=== PATIENT | female | born 1960 | race Caucasian/White ===

== ENCOUNTER 2019-07-07 09:38 | Outpatient (CLI) | payer BC, SELFPAY ==
--- NOTE | ~2019-07-07 | US_ITS ---
EXAMINATION: US soft tissue LE RT DATE: 07/07/2019 10:14 INDICATION: Right medial lower leg mass. TECHNIQUE: Multiple grayscale and Doppler ultrasound images of the right lower leg were obtained. COMPARISON: None FINDINGS: In the medial distal right lower leg, there are multiple subcutaneous hypoechoic masses tahir suring up to 8 mm. IMPRESSION: 1. Multiple small subcutaneous hypoechoic masses in the medial distal right lower leg. These findings are nonspecific, but may be hematomas or inflammation. Reviewed, dictated and finalized at location A. IMPRESSION: 1. Multiple small subcutaneous hypoechoic masses in the medial distal right low er leg. These findings are nonspecific, but may be hematomas or inflammation.
== END 2019-07-07 09:39 | disposition home or self-care (01) ==
PROVIDERS: PCP Internal Medicine; Visit Provider Internal Medicine
DX: R22.40 Localized swelling, mass and lump, unspecified lower limb (principal)
CPT/HCPCS: 76882

== ENCOUNTER → 2019-11-22 11:25 | Outpatient (CLI) | payer BC, SELFPAY ==
--- NOTE | ~2019-11-22 | DEXA_ITS ---
Bone Density Report Name: Anna Brandt Age: 59 Sex: Female Ethnicity: White Date of : 1960 Indication: postmenopausal; screening for osteoporosis; history of glucocorticoids; asthma or emphysema; end stage renal disease; Referring Provider: DAVID, EMERSON Muro Study: Bone densitometry was performed. Exam Date: November 22, 2019 Accession number: [id number] Bone Density: Region BMD T-score Z-score Classification AP Spine (L1-L4) 0.949 -0.9 0.5 Normal Femoral Neck (Left) 0.750 -0.9 0.4 Normal Total Hip (Left) 0.857 -0.7 0.2 Normal Femoral Neck (Right) 0.765 -0.8 0.5 Normal Total Hip (Right) 0.822 -1.0 0.0 Normal Total Hip Mean 0.840 -0.9 0.1 Normal World Health Organization criteria for BMD impression classify patients as: Normal (T-score at or above -1.0), Osteopenia (T-score between -1.0 and -2.5), or Osteoporosis (T-score at or below -2.5). 10-year Fracture Risk: FRAX not reported because: All T-scores for Spine Total, Hip Total, Femoral Neck at or above -1.0 Clinical Information Provided by Patient: Has taken Glucocorticoids Has the following medical conditions: Asthma or Emphysema, End stage renal disease Patient maximum height was 61 Menopause Age: 47 No regular weight bearing exercise Does not regularly consume dairy products Drinks caffeinated beverages Onset of menses at age 10 Number of children 1 Impression: The patient has normal bone mass. The patient has risk factors, including: history of glucocorticoid therapy. Discussion: BONE DENSITY IS ABOVE THE MINIMUM DESIRABLE LEVEL AT ALL SKELETAL SITES TESTED. This patient?s bone mineral density is above the minimum desirable level (T-score -1.0 or better) at all sites measured. The patient should follow a healthful lifestyle (good nutrition with adequate calcium and vitamin D, and appropriate weight-bearing exercise). Follow-Up: Consider repeating this study in 5 years or sooner if there is some new clinical indication. Reported by: [facility] on 11/22/2019 12:11:00 PM. Reviewed, dictated and finalized at location AShayna CONTRERAS
--- NOTE | ~2019-11-22 | MM_ITS ---
EXAMINATION: MM screening ana BI w kamla HISTORY: Screening mammogram, family history of breast cancer in her mother. TECHNIQUE: Craniocaudal and mediolateral oblique 3-D tomosynthesis images were obtained and synthetic 2-D images were generated. CAD analysis was submitted and interpreted. COMPARISON: 03/07/2017 BREAST PARENCHYMAL COMPOSITION: There are scattered areas of fibroglandular density. FINDINGS: There is no evidence of suspicious mass, calcification, or architectural distortion to sugg est malignancy in either breast. There has been no suspicious interval change. IMPRESSION: 1. No mammographic evidence of malignancy. 2. Recommend routine screening mammography in one year. BI-RADS Category 1: Negative Reviewed, dictated and finalized at location A.
== END ==
PROVIDERS: PCP Internal Medicine; Visit Provider Internal Medicine
DX: Z12.31 Encounter for screening mammogram for malignant neoplasm of breast (principal); Z13.820 Encounter for screening for osteoporosis; Z78.0 Asymptomatic menopausal state
CPT/HCPCS: 77063; 77067; 77080

== ENCOUNTER 2020-03-28 10:26 | Outpatient (NON) | payer BC, SELFPAY ==
[2020-03-29 00:37] LABS: SARS-CoV-2 RNA PCR Negative
== END 2020-03-28 10:27 ==
LOC: ANHCOVIDDT 10:28
PROVIDERS: PCP Internal Medicine; Visit Provider Internal Medicine
DX: Z20.822 Contact with and (suspected) exposure to COVID-19 (principal)
CPT/HCPCS: C9803; U0003; U0005

== ENCOUNTER 2020-04-02 14:45 | Inpatient (IN) | payer BC, SELFPAY ==
--- NOTE | ~2020-04-02 | XR_ITS ---
EXAMINATION: XR chest 1V portable 04/02/2020 15:44 INDICATION: Weakness and shortness of breath PROCEDURE: AP portable chest COMPARISON: No prior studies for comparison. FINDINGS: The lungs are clear. The cardiomediastinal silhouette is within normal limits. There are no pleural effusions. There is no pneumothorax suspected. IMPRESSION: 1: NO ACUTE CARDIOPULMONARY DISEASE. Reviewed, dictated and finalized at location A. MAKER
[2020-04-02 14:54] VITALS: BP 111/62; PULSE 104; RESP 20; TEMP 36.9; O2SAT 97
[2020-04-02 15:02] LABS: Glucose Point of Care > 500 (65-105)
[2020-04-02 15:11] LABS: Basophils Percent Auto 0.1 % (0.2-1.2); Eosinophils Percent Auto 0.1 % (0-4.4); Hematocrit 31.8 % (37.0-47.0); Immature Granulocyte Absolute 0.03 K/mm3 (0.00-0.031); Immature Granulocyte Percent A 0.4 % (0-0.5); Lymphocytes Absolute Auto 0.53 K/mm3 (0.9-3.2); Lymphocytes Percent Auto 7.9 % (18.3-44.2); Mean Corpuscular HGB Conc 34.6 g/dl (32-36); Mean Corpuscular Hemoglobin 29.5 pg (26-34); Mean Corpuscular Volume 85.3 fl (80-100); Monocytes Absolute Auto 0.2 K/mm3 (0.1-0.6); Monocytes Percent Auto 3.6 % (2.6-8.5); Neutrophils Absolute Auto 5.9 K/mm3 (1.3-6.7); Neutrophils Percent Auto 87.9 % (45.5-73.1); Platelet Count Result 177 k/mm3 (150-375); Red Blood Count 3.73 M/mm3 (4.2-5.4); Red Cell Distribution Width 12.3 % (11.5-14.5); White Blood Count 6.7 K/mm3 (4.5-10.0)
[2020-04-02 15:18] LABS: Glucose Point of Care > 500 (65-105)
[2020-04-02 15:26] LABS: Add Urine Microscopic? YES; Appearance Urine Clear (Clear); Bacteria Urine Trace /hpf; Bilirubin Urine Negative (Negative); Blood Urine Negative (Negative); Color Urine Straw (Yellow); Glucose Urine UA 3+ mg/dL (Negative); Ketones Urine Trace mg/dL (Negative); Leukocyte Esterase Ur Negative LEU/UL (Negative); Mucus Urine Rare /lpf; Nitrate Urine Negative (Negative); Protein Urine Negative (Negative); RBC Urine 0-2 /hpf (0-2); Specific Grav Ur 1.028 (1.001-1.035); Squamous Epithelial Cell Urine Moderate /hpf (Few); Urobilinogen Urine Negative mg/dL (<2.0)
[2020-04-02 15:28] LABS: Alanine Aminotransferase 18 U/L (4-35); Albumin Level 4.2 g/dL (3.5-5.1); Alkaline Phosphatase 92 U/L (38-126); Anion Gap 13 mmol/L (8-16); Aspartate Amino Transferase 21 U/L (14-36); Beta-Hydroxybutyrate/Acetoacetate 3.05 mmol/L (0.02-0.27); Blood Urea Nitrogen 34 mg/dL (7-17); Calcium 10.2 mg/dL (8.4-10.2); Carbon Dioxide 21 mmol/L (22-30); Chloride 90 mmol/L (98-107); Estimated CRCL calculation 24 ml/min; Estimated Glomerular Filt Rate 27; Magnesium 1.7 mg/dL (1.6-2.3); Phosphorus 3.8 mg/dL (2.5-4.5); Potassium 5.6 mmol/L (3.4-5.0); Sodium 124 mmol/L (137-145)
--- NOTE | 2020-04-02 15:31 | ECG_ITS ---
Measurements Intervals [place] Rate: 87 P: 29 MO: 149 QRS: -17 QRSD: 91 T: 81 QT: 341 QTc: 410 Interpretive Statements SINUS RHYTHM ATRIAL PREMATURE COMPLEX BORDERLINE R WAVE PROGRESSION, ANTERIOR LEADS NONSPECIFIC ST & T-WAVE ABNORMALITY- HIGH LATERAL LEADS BASELINE ARTIFACT- I, II, AVR, AVL, AVF, V1, V6 BORDERLINE ECG Electronically Signed On 04-02-2020 19:21:18 [employer]AVA ANDROID DEVELOPER by Vic Rivera D.O.
[2020-04-02 15:34] LABS: Glucose 762 mg/dL (65-105)
--- NOTE | 2020-04-02 15:34 | ED.RECABL ---
HPI - Recheck/Abnormal Lab/Rx General Chief Complaint: Recheck/Abnormal Lab/Rx Stated Complaint: elevated blood sugar Time Seen by Provider: 04/02/20 15:13 Source: patient Mode of arrival: ambulatory Limitations: no limitations History of Present Illness HPI narrative: This patient is a 59 year old female with history of hypertension, hyper lipidemia, kidney transplant who presents to ER for evaluation of an elevated blood sugar. Patient states she had routine labs drawn yesterday. Today she received a phone call stating her blood sugar was elevated and she needed to go to ER. She report nausea, fatigue, increased thirst and urination for 4 weeks. She reports intermittent stinging pain in her right lower abdomen over her transplant kidney. She reports chronic low grade temperature. She denies cough and chest pain. She reports shortness of breath intermittent. Denies history of diabetes. She reports 20 pound weight loss. She denies any medication changes other than starting crestor. She reports she had a kidney transplant in 2009 at [place]. Related Data Home Medications Medication Instructions Recorded Confirmed albuterol sulfate 2 puff INHALATION QID PRN 04/02/20 04/02/20 duloxetine 60 mg PO DAILY 04/02/20 04/02/20 famotidine 20 mg PO BID 04/02/20 04/02/20 metoprolol tartrate 25 mg PO DAILY 04/02/20 04/02/20 mycophenolate sodium 360 mg PO BID 04/02/20 04/02/20 olmesartan 10 mg PO BID 04/02/20 04/02/20 prednisone 5 mg PO DAILY 04/02/20 04/02/20 rosuvastatin 10 mg PO DAILY 04/02/20 04/02/20 tacrolimus 2 mg PO BID 04/02/20 04/02/20 Allergies Allergy/AdvReac Type Severity Reaction Status Date / Time Sulfa (Sulfonamide Allergy Mild Hives Verified 04/02/20 20:24 Antibiotics) Cephalosporins Allergy Unknown Hives Verified 04/02/20 20:24 Review of Systems Review of Systems: All systems reviewed & are unremarkable except as noted in HPI and below Constitutional: Constitutional: Denies chills, Reports fatigue and Denies fever(s) Cardiovascular: Cardiovascular: Denies chest pain Respiratory: Respiratory: Denies cough and Reports dyspnea Gastrointestinal: Gastrointestinal: Reports abdominal pain, Denies diarrhea, Reports nausea and Denies vomiting Genitourinary: Genitourinary: Reports nocturia [facility] Past Medical History Medical History (Updated 04/02/20 @ 23:04 by Akiko Haji MD) Chronic anemia Chronic renal failure History of hemodialysis prior to renal transplant. Baseline creatinine is around 1.40. Congestive heart failure Gastroesophageal reflux disease Hyperlipidemia Hypertension Immunocompromised patient On immunosuppressive therapy status post renal transplant. Polycystic kidney disease Status post bilateral nephrectomy. Skin cancer History of both basal cell and squamous cell carcinoma. Type 2 diabetes mellitus (~04/02/20) Surgical History Surgical History (Updated 04/02/20 @ 23:04 by Akiko Haji MD) History of Achilles tendon repair History of section (~1981) History of endometrial ablation (~2008) Kidney transplant recipient (~04/2009) Status post creation of arteriovenous fistula Status post surgical removal of malignant neoplasm of skin Family History Family History (Updated 04/02/20 @ 22:48 by Camilla Valladares PA-C) Other Breast cancer Carcinoma of colon Diabetes mellitus Lung cancer Polycystic kidney disease Social History Social History (Updated 04/02/20 @ 22:48 by Camilla Valladares PA-C) Social History: Surrogate decision maker: Louis Alvarez, spouse. Code status: Full code. Smoking packs per day: 1 Smoking cigarettes per day: 20.0 Years smoked: 30 Smoking pack-years: 30.00 Smoking status: Former smoker Tobacco type: cigarettes Second hand tobacco smoke exposure: Yes Alcohol intake: current Drinks per week: 1 Substance use: never Additional living arrangements comments: Resides in [facility]
--- NOTE | 2020-04-02 15:45 | PC.NURSE ---
patient brought back to ED room H2 with c/o elevated sugar or abnormal labs. see initial notes. patient states she is not diabetic. has been told previously that her glucose was 140-160. notified today that her glucose on some recent labs was over 500. instructed to come to the ED for work up and possible admission. patient with hx of peritoneal dialysis, kidney transplant in 2009. has AV graft in left upper arm. assessments documented.
[2020-04-02] MEDS: INSULIN HUMAN REGULAR (*BKC) 100 UNITS/ML 6 UNITS IV PUSH (15:46)
[2020-04-02] MEDS: SODIUM CHLORIDE 0.9% IV 1,000 ML 999 ML IV CONT ×2 (15:59→16:21)
--- NOTE | 2020-04-02 16:44 | PC.NURSE ---
Tried sticking patient for a venous blood gas, and was unsuccessful.
[2020-04-02 17:03] LABS: Glucose Point of Care > 500 (65-105)
[2020-04-02 17:11] LABS: Device ROOM AIR; Fractional Inspired Oxygen 21 %; HCO3 VBG 21.1 mEq/l (24.0-30.0); PCO2 VBG 38.1 mmHg (42.0-48.0); PO2 VBG 16.8 mmHg (35.0-45.0); pH VBG 7.361 (7.300-7.400)
[2020-04-02] MEDS: SODIUM BICARBONATE 8.4% 50 MEQ/50 ML VIAL IV PUSH (17:52)
[2020-04-02] MEDS: INSULIN HUMAN REGULAR (*BKC) 100 UNITS in SODIUM CHLORIDE 0.9% IV 99 ML IV CONT (18:31)
[2020-04-02] MEDS: SODIUM CHLORIDE 0.9% IV 1,000 ML 150 ML IV CONT (18:34)
[2020-04-02 18:43] LABS: Anion Gap 9 mmol/L (8-16); Blood Urea Nitrogen 33 mg/dL (7-17); Carbon Dioxide 22 mmol/L (22-30); Chloride 99 mmol/L (98-107); Estimated CRCL calculation 29 ml/min; Estimated Glomerular Filt Rate 33; Glucose 502 mg/dL (65-105); Potassium 5.5 mmol/L (3.4-5.0); Sodium 130 mmol/L (137-145)
--- NOTE | 2020-04-02 19:00 | PM.IMHP ---
H&P: HPI History of Present Illness Date/Time: 04/02/20 19:00 Chief Complaint: Elevated blood sugar. Narrative: This is a pleasant 59-year-old female with hypertension and polycystic kidney disease status post bilateral nephrectomy and kidney transplant who presented to the emergency department earlier today from home at the direction of her transplant team for further evaluation of an elevated blood sugar level found on routine labs drawn this past Friday. Her glucose on arrival to the emergency department was 762 and she has since been started on insulin drip. She has no history of diabetes however reports a strong family history of such. With further questioning she does admit that she has not felt well for the past 10 days with fatigue, lightheadedness, nausea, polydipsia, polyuria, and blurry vision. She also estimates that she has lost about 14 lb in the same time frame. She denies fever, chills, sweats, shortness of breath, vomiting, diarrhea, and dysuria. No paresthesias or nonhealing wounds. Review of Systems Review of Systems: Narrative: Twelve systems were reviewed with pertinent positives and negatives as per HPI. No recent cold or flu symptoms. She denies cough and shortness of breath. No exposure to those positive for COVID-19. Except as documented, all other systems were reviewed and are negative. [facility] Past Medical History Medical History (Updated 04/02/20 @ 22:51 by Camilla Valladares PA-C) Chronic anemia Chronic renal failure History of hemodialysis prior to renal transplant. Baseline creatinine is around 1.40. Congestive heart failure Gastroesophageal reflux disease Hyperlipidemia Hypertension Immunocompromised patient On immunosuppressive therapy status post renal transplant. Polycystic kidney disease Status post bilateral nephrectomy. Skin cancer History of both basal cell and squamous cell carcinoma. Type 2 diabetes mellitus (~04/02/20) Surgical History Surgical History (Updated 04/02/20 @ 22:47 by Camilla Valladares PA-C) History of Achilles tendon repair History of section (~1981) History of endometrial ablation (~2008) Kidney transplant recipient (~04/2009) Status post creation of arteriovenous fistula Status post surgical removal of malignant neoplasm of skin Family History Family History (Updated 04/02/20 @ 22:48 by Camilla Valladares PA-C) Other Breast cancer Carcinoma of colon Diabetes mellitus Lung cancer Polycystic kidney disease Social History Social History (Updated 04/02/20 @ 22:48 by Camilla Valladares PA-C) Social History: Surrogate decision maker: Louis Alvarez, spouse. Code status: Full code. Smoking packs per day: 1 Smoking cigarettes per day: 20.0 Years smoked: 30 Smoking pack-years: 30.00 Smoking status: Former smoker Tobacco type: cigarettes Second hand tobacco smoke exposure: Yes Alcohol intake: current Drinks per week: 1 Substance use: never Additional living arrangements comments: Resides in [place] with her . 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 Gender identity (if verbalized by the patient): Female Spiritual care concerns: No Meds Home Medications and Allergies Home Medications Medication Instructions Recorded Confirmed Type albuterol sulfate 2 puff INHALATION QID PRN 04/02/20 04/02/20 History duloxetine 60 mg PO DAILY 04/02/20 04/02/20 History famotidine 20 mg PO BID 04/02/20 04/02/20 History metoprolol tartrate 25 mg PO DAILY 04/02/20 04/02/20 History mycophenolate sodium 360 mg PO BID 04/02/20 04/02/20 History olmesartan 10 mg PO BID 04/02/20 04/02/20 History prednisone 5 mg PO DAILY 04/02/20 04/02/20 History rosuvastatin 10 mg PO DAILY 04/02/20 04/02/20 History tacrolimus 2 mg PO BID 04/02/20 04/02/20 History Allergies Allergy/AdvReac Type Severity Reaction Status Date / Time Sulfa (Sulfonamide Allergy Mild Hives Verified 04/02/20 20:24 Antib
--- NOTE | 2020-04-02 19:42 | PC.NURSE ---
1938 received report from YOVANY Carrillo.
[2020-04-02 19:49] LABS: Glucose Point of Care 453 (65-105)
[2020-04-02 20:04] VITALS: PULSE 86
--- NOTE | 2020-04-02 20:06 | PC.NURSE ---
patient transferred to ICU 10 via stretcher, satellite project site monitor and this RN. RN in room on arrival.
[2020-04-02 20:13] VITALS: PULSE 86; RESP 16; O2SAT 100
[2020-04-02 20:15] VITALS: BP 145/77; PULSE 80; RESP 13; TEMP 36.7; O2SAT 100
--- NOTE | 2020-04-02 20:18 | ADMIMU ---
This patient, Anna Brandt, was admitted to IMU status, and placed in Intensive Care Unit-10 on 04-02-20 at 1999. Patient/family oriented to hospital policies /and general routines including ID bracelet, bed and alarms, visiting hours, pain management, procedur/es, bathroom and other care routines, personal items, smoking policy, room service/diet, and visiting hours. Valuables list has been completed. Information on how to activate the Rapid Response Team has been discussed. Patient/Family are encouraged to report perceived risks to care and to ask questions if they do not understand what they are told or what they should do.
[2020-04-02 20:22] VITALS: BMI 28.2
[2020-04-02 21:00] VITALS: BP 157/78; PULSE 80; RESP 13; O2SAT 100
[2020-04-02 21:02] LABS: Glucose Point of Care 328 (65-105)
[2020-04-02 21:55] LABS: Glucose Point of Care 238 (65-105)
[2020-04-02 22:00] VITALS: BP 150/75; PULSE 80; RESP 15; O2SAT 97
[2020-04-02 22:15] LABS: Anion Gap 7 mmol/L (8-16); Blood Urea Nitrogen 30 mg/dL (7-17); Calcium 9.1 mg/dL (8.4-10.2); Carbon Dioxide 22 mmol/L (22-30); Chloride 108 mmol/L (98-107); Estimated CRCL calculation 32 ml/min; Estimated Glomerular Filt Rate 35; Glucose 222 mg/dL (65-105); Potassium 4.2 mmol/L (3.4-5.0); Sodium 137 mmol/L (137-145)
[2020-04-02] MEDS: KCL 20 MEQ/D5/0.45% SOD CHL 1,000 ML 150 ML IV CONT (23:18)
[2020-04-02 23:23] LABS: Glucose Point of Care 116 (65-105)
[2020-04-03] VITALS (12 sets, daily range): BP systolic 108–144; BP diastolic 55–86; PULSE 62–92; RESP 14–21; TEMP 36.3–36.8; O2SAT 95–100; BMI 27.8
[2020-04-03 00:20] LABS: Glucose Point of Care 114 (65-105)
[2020-04-03] MEDS: DULoxetine HCL 60 MG CAPSULE.DR PO ×2 (01:07→22:34)
[2020-04-03] MEDS: ROSUVASTATIN 10 MG TABLET PO ×2 (01:07→22:34)
[2020-04-03] MEDS: METOPROLOL TARTRATE 25 MG TABLET PO ×2 (01:08→22:35)
[2020-04-03 01:14] LABS: Glucose Point of Care 148 (65-105)
[2020-04-03 01:54] LABS: Glucose Point of Care 152 (65-105)
[2020-04-03 02:15] LABS: Anion Gap 4 mmol/L (8-16); Blood Urea Nitrogen 27 mg/dL (7-17); Calcium 8.7 mg/dL (8.4-10.2); Carbon Dioxide 23 mmol/L (22-30); Chloride 110 mmol/L (98-107); Estimated CRCL calculation 32 ml/min; Estimated Glomerular Filt Rate 35; Glucose 154 mg/dL (65-105); Sodium 137 mmol/L (137-145)
[2020-04-03 03:08] LABS: Glucose Point of Care 146 (65-105)
[2020-04-03 05:28] LABS: Glucose Point of Care 133 (65-105)
[2020-04-03 05:28] LABS: Glucose Point of Care 116 (65-105)
[2020-04-03] MEDS: INSULIN GLARGINE (*BKC) 100 UNITS/ML 10 UNITS SUB-Q ×2 (06:13→12:21)
[2020-04-03] MEDS: SODIUM CHLORIDE 0.45% 1,000 ML 75 ML IV CONT (06:15)
[2020-04-03] MEDS: ACETAMINOPHEN 325 MG TABLET 650 MG PO (06:18)
[2020-04-03 06:25] LABS: Hematocrit 29.8 % (37.0-47.0); Hemoglobin 10.4 g/dL (12.0-15.0); Mean Corpuscular HGB Conc 34.9 g/dl (32-36); Mean Corpuscular Hemoglobin 29.8 pg (26-34); Mean Corpuscular Volume 85.4 fl (80-100); Mean Platelet Volume 10.6 fl (7.4-10.4); Platelet Count Result 203 k/mm3 (150-375); Red Blood Count 3.49 M/mm3 (4.2-5.4); Red Cell Distribution Width 12.5 % (11.5-14.5); White Blood Count 7.2 K/mm3 (4.5-10.0)
[2020-04-03 06:42] LABS: Anion Gap 4 mmol/L (8-16); Blood Urea Nitrogen 23 mg/dL (7-17); Calcium 8.8 mg/dL (8.4-10.2); Carbon Dioxide 25 mmol/L (22-30); Chloride 108 mmol/L (98-107); Estimated CRCL calculation 32 ml/min; Estimated Glomerular Filt Rate 35; Glucose 95 mg/dL (65-105); Magnesium 1.6 mg/dL (1.6-2.3); Sodium 137 mmol/L (137-145)
[2020-04-03 07:57] LABS: Glucose Point of Care 272 (65-105)
[2020-04-03 07:58] LABS: Thyroid Stimulating Hormone Reflex 0.244 uIU/mL (0.465-4.68)
[2020-04-03] MEDS: INSULIN ASPART (*BKC) 100 UNITS/ML SUB-Q ×3 (08:01→18:18)
[2020-04-03] MEDS: MAGNESIUM SULF 2 GM/WATER 50ML 2 GM/50 ML BAG IVPB (08:03)
[2020-04-03] MEDS: FAMOTIDINE 20 MG TABLET PO ×2 (08:10→22:34)
--- NOTE | 2020-04-03 08:27 | WPDCNINT ---
Assessment and Plan Assessment and plan (1) DKA, type 2: Code(s): E11.10 - Type 2 diabetes mellitus with ketoacidosis without coma Status: Acute Assessment and Plan: Patient has positive beta hydroxybutyrate on presentation along with hyperglycemia although her anion gap was normal. Patient was given IV fluid bolus and started on IV fluid infusion IV insulin infusion Overnight her acidosis and hyperglycemia improved I have transition patient to subcutaneous insulin. Patient was given Lantus and switched to sliding scale insulin IV fluids changed to half-normal saline Diet started (2) New onset type 2 diabetes mellitus: Code(s): E11.9 - Type 2 diabetes mellitus without complications Status: Acute Assessment and Plan: Consult personal development educator HB A1c is pending (3) Dehydration: Code(s): E86.0 - Dehydration Status: Acute Assessment and Plan: Improved with IV fluids Continue maintenance IV fluids for another 24 hours (4) FERMIN (acute kidney injury): Code(s): N17.9 - Acute kidney failure, unspecified Status: Acute Assessment and Plan: Patient's baseline creatinine is 1.4 and was and 1.9 at the time of presentation Likely prerenal from dehydration and hypovolemia Patient was given IV fluids which are continue Creatinine improved 1.5 Continue to monitor urine output creatinine and electrolytes Hold ARB at this time (5) Kidney transplant recipient: Onset Date: ~04/2009 Code(s): Z94.0 - Kidney transplant status Status: Inactive Assessment and Plan: Since renal function is returned close to baseline, will resume mycophenolate, prednisone and tacrolimus Patient will use her home supply of mycophenolate and tacrolimus since they are non formulary in our hospital (6) CKD (chronic kidney disease): Code(s): N18.9 - Chronic kidney disease, unspecified Status: Acute (7) Acute hyperkalemia: Code(s): E87.5 - Hyperkalemia Status: Acute Assessment and Plan: Improved with rehydration (8) Hypothyroidism: Code(s): E03.9 - Hypothyroidism, unspecified Status: Acute Assessment and Plan: Patient's TSH level is low. Free T4 is pending (9) Hypertension: Code(s): I10 - Essential (primary) hypertension Status: Acute Assessment and Plan: Continue metoprolol Additional Plan DVT prophylaxis -subcutaneous Lovenox Nutrition -diabetic diet Code Status - Full Code Gem Carver Consult Note Consult date: 04/03/20 Time Seen: 07:10 HPI: Anna Brandt is a 59 year old female with past medical history of hypertension and polycystic kidney disease status post bilateral nephrectomy and kidney transplant in 2009 who presented to the emergency department earlier today from home at the direction of her transplant team for further evaluation of an elevated blood sugar level found on routine labs drawn this past Friday. Patient told me that from last 2 weeks she has been feeling tired and fatigued. She also was drinking lot of water and was having high urine output. She went to see her primary care physician for tested her for COVID which was negative and sent labwork. She received a call from her office telling her that her blood sugar was very high and she needed to present to ER for further management. Her glucose on arrival to the emergency department was 762 and she diagnosed with DKA and started on insulin drip. She has no history of diabetes however reports a strong family history of such. This morning patient feels better denies any new complaints. She does admit that she was also having fatigue, lightheadedness, nausea, polydipsia, polyuria, and blurry vision. Her appetite was poor and she lost close to 15 lb of weight. She she denies any contact with anyone diagnosed with COVID-19. She has not received COVID-19 vaccine yet. She denies fever, chills, sweats, shortness of breath, v
--- NOTE | 2020-04-03 08:27 | PHAR ---
The patient's home med of Tacrolimus 1mg has been verified. Unable to verify home med of Mycophenolic acid 360mg due to drug imprint not in database.
[2020-04-03] MEDS: predniSONE 5 MG TABLET PO (10:48)
[2020-04-03] MEDS: ENOXAPARIN 30 MG/0.3 ML SYRINGE SUB-Q (10:49)
[2020-04-03 12:08] LABS: Glucose Point of Care 406 (65-105)
[2020-04-03] MEDS: INSULIN HUMAN REGULAR (*BKC) 100 UNITS/ML 10 UNITS IV PUSH (12:21)
[2020-04-03 12:27] LABS: Hemoglobin A1C 12.3 % (<5.7)
[2020-04-03 12:27] LABS: Total Triiodothyronine (T3) 0.86 NG/ML (0.97-1.69)
[2020-04-03 14:29] LABS: Glucose Point of Care 358 (65-105)
--- NOTE | 2020-04-03 14:48 | PM.IMPN ---
Progress Note: A&P Assessment and Plan (1) New onset type 2 diabetes mellitus: Code(s): E11.9 - Type 2 diabetes mellitus without complications Status: Acute Assessment and Plan: On presentation, patient had a glucose of 762. Anion gap is only 13 but beta hydroxybutyrate level was 3. PH was 7.36. Patient was admitted to the ICU and started on DKA protocol with IV fluids and IV insulin.. Anion gap trended downward. Glucose improved. She was able to be transitioned to subcu insulin. A1c 12.3. Dietitian consult. family living educator to see as well. She was started on Lantus. Her glucose increased to 400 so the Lantus was advanced and mealtime NovoLog added. Will continue to monitor overnight and adjust her medications accordingly. (2) Acute hyperkalemia: Code(s): E87.5 - Hyperkalemia Status: Acute Assessment and Plan: Elevated 5.6. Related to above. With appropriate medications potassium has improved. (3) Acute renal failure (ARF): Code(s): N17.9 - Acute kidney failure, unspecified Status: Acute Assessment and Plan: Creatinine was 1.9 on admission. Related to dehydration and prerenal azotemia. Creatinine has improved to 1.5 which is close to her baseline. Continue to follow. (4) Electrolyte abnormality: Code(s): E87.8 - Other disorders of electrolyte and fluid balance, not elsewhere classified Status: Acute Assessment and Plan: On admission, patient's sodium was 124 with chloride of 90. Potassium as mentioned above. Magnesium and phosphorus were normal. This is most likely pseudo hyponatremia related to the hyperglycemia. With correction of the hyperglycemia, sodium has improved to 137. Continue to monitor. (5) Dehydration: Code(s): E86.0 - Dehydration Status: Acute Assessment and Plan: Related to severe hyperglycemia. As above. Symptoms resolving. Stop IV fluids. (6) Chronic renal failure: Code(s): N18.9 - Chronic kidney disease, unspecified Status: Inactive Assessment and Plan: Patient with a history of polycystic kidney disease status post bilateral nephrectomy with transplant. She has CKD with a creatinine baseline of 1.4. (7) Chronic anemia: Code(s): D64.9 - Anemia, unspecified Status: Inactive Assessment and Plan: Hemoglobin 11 on admission. Hemoglobin on repeat was 10.4. Most likely related to her chronic illnesses and medication. Continue to follow. (8) Kidney transplant recipient: Code(s): Z94.0 - Kidney transplant status Status: Acute Assessment and Plan: Patient is status post kidney transplant. Continue mycophenolate, tacrolimus and prednisone. (9) Immunocompromised patient: Code(s): D84.9 - Immunodeficiency, unspecified Status: Inactive Assessment and Plan: Patient is on immunosuppressive agents. No evidence of infection. No fevers. White count is normal. UA shows 10-15 white cells but moderate squamous epithelial cells and no leukocyte Estrace or nitrates to suggest contaminated specimen. Chest x-ray is clear. Continue to monitor for signs or symptoms of infection. Urine culture growing EColi 100K. Allergic to Sulfa and Cephalosporins. QTc 410. Add renally dosed Levaquin. (10) Hypothyroidism: Code(s): E03.9 - Hypothyroidism, unspecified Status: Acute Assessment and Plan: TSH low at 0.24. FT4 normal at 1.1. Will hold on any adjustment at this time. Continue her levothyroxine at current dose. Defer to her primary care doctor for further evaluation and adjustment. (11) Hypertension: Code(s): I10 - Essential (primary) hypertension Status: Acute Assessment and Plan: Blood pressure well controlled. Continue Lopressor and Benicar. Continue to monitor. (12) DVT prophylaxis: Code(s): Z29.9 - Encounter for prophylactic measures, unspecifie
[2020-04-03] MEDS: INSULIN HUMAN REGULAR (*BKC) 100 UNITS/ML IV PUSH (15:05)
--- NOTE | 2020-04-03 17:20 | PC.NURSE ---
This patient, Anna Brandt, was transferred to [[id number]] on 04/03/20 at 1720. Personal belongings sent with patient. Report given to [BETTE PEDROZA]. Appropriate documentation sent with patient.
[2020-04-03 18:21] LABS: Glucose Point of Care 364 (65-105)
[2020-04-03 20:48] LABS: Glucose Point of Care 441 (65-105)
[2020-04-03] MEDS: INSULIN ASPART (*BKC) 100 UNITS/ML 6 UNITS SUB-Q (21:17)
[2020-04-03] MEDS: INSULIN GLARGINE (*BKC) 100 UNITS/ML 20 UNITS SUB-Q (21:18)
[2020-04-03] MEDS: ASPIRIN 81 MG ENTERIC TABLET PO (22:34)
[2020-04-04] MEDS: INSULIN ASPART (*BKC) 100 UNITS/ML SUB-Q ×2 (01:04→08:24)
[2020-04-04 01:13] LABS: Glucose Point of Care 253 (65-105)
[2020-04-04 05:46] LABS: Hematocrit 26.8 % (37.0-47.0); Hemoglobin 9.2 g/dL (12.0-15.0); Mean Corpuscular HGB Conc 34.3 g/dl (32-36); Mean Corpuscular Hemoglobin 29.9 pg (26-34); Mean Platelet Volume 11.1 fl (7.4-10.4); Platelet Count Result 147 k/mm3 (150-375); Red Blood Count 3.08 M/mm3 (4.2-5.4); Red Cell Distribution Width 12.6 % (11.5-14.5); White Blood Count 3.8 K/mm3 (4.5-10.0)
[2020-04-04 06:00] VITALS: BP 123/77; PULSE 66; RESP 20; TEMP 36.1; O2SAT 98
[2020-04-04 06:00] LABS: Alanine Aminotransferase 15 U/L (4-35); Albumin Level 2.8 g/dL (3.5-5.1); Alkaline Phosphatase 46 U/L (38-126); Anion Gap 3 mmol/L (8-16); Aspartate Amino Transferase 24 U/L (14-36); Bilirubin,Total 0.4 mg/dL (0.2-1.3); Blood Urea Nitrogen 21 mg/dL (7-17); Calcium 8.3 mg/dL (8.4-10.2); Carbon Dioxide 24 mmol/L (22-30); Chloride 109 mmol/L (98-107); Estimated CRCL calculation 34 ml/min; Estimated Glomerular Filt Rate 38; Glucose 131 mg/dL (65-105); Phosphorus 2.7 mg/dL (2.5-4.5); Potassium 4.5 mmol/L (3.4-5.0); Sodium 136 mmol/L (137-145)
[2020-04-04 10:28] LABS: Glucose Point of Care 136 (65-105)
[2020-04-04 10:28] LABS: Glucose Point of Care 416 (65-105)
[2020-04-04] MEDS: ENOXAPARIN 30 MG/0.3 ML SYRINGE SUB-Q (10:33)
[2020-04-04] MEDS: FAMOTIDINE 20 MG TABLET PO ×2 (10:33→22:35)
[2020-04-04] MEDS: predniSONE 5 MG TABLET PO (10:34)
[2020-04-04] MEDS: OLMESARTAN MEDOXOMIL 10 MG TABLET PO ×2 (10:34→22:35)
--- NOTE | 2020-04-04 10:46 | PM.IMPN ---
Progress Note: A&P Assessment and Plan (1) New onset type 2 diabetes mellitus: Code(s): E11.9 - Type 2 diabetes mellitus without complications Status: Acute Assessment and Plan: On presentation patient had DKA required DKA protocol currently insulin has been adjusted as blood sugar is uncontrolled. (2) Acute hyperkalemia: Code(s): E87.5 - Hyperkalemia Status: Acute Assessment and Plan: Elevated 5.6. Short of breath iimproved (3) Acute renal failure (ARF): Code(s): N17.9 - Acute kidney failure, unspecified Status: Acute Assessment and Plan: Creatinine was 1.9 on admission. Related to dehydration improved . (4) Electrolyte abnormality: Code(s): E87.8 - Other disorders of electrolyte and fluid balance, not elsewhere classified Status: Acute Assessment and Plan: Hyperkalemia pseudohyponatremia secondary to DKA resolved (5) Dehydration: Code(s): E86.0 - Dehydration Status: Acute Assessment and Plan: Treated with IV fluids resolved. (6) Chronic renal failure: Code(s): N18.9 - Chronic kidney disease, unspecified Status: Inactive Assessment and Plan: Patient with a history of polycystic kidney disease status post bilateral nephrectomy with transplant. She has CKD with a creatinine baseline of 1.4. (7) Chronic anemia: Code(s): D64.9 - Anemia, unspecified Status: Inactive Assessment and Plan: Most likely anemia of chronic disease monitor (8) Kidney transplant recipient: Code(s): Z94.0 - Kidney transplant status Status: Acute Assessment and Plan: Patient is status post kidney transplant. Continue mycophenolate, tacrolimus and prednisone. (9) Immunocompromised patient: Code(s): D84.9 - Immunodeficiency, unspecified Status: Inactive Assessment and Plan: Urine culture growing EColi 100K. Allergic to Sulfa and Cephalosporins. QTc 410. Add renally dosed Levaquin. (10) Hypothyroidism: Code(s): E03.9 - Hypothyroidism, unspecified Status: Acute Assessment and Plan: TSH low at 0.24. FT4 normal at 1.1. Monitor repeat thyroid function test as outpatient probably sick steroid (11) Hypertension: Code(s): I10 - Essential (primary) hypertension Status: Acute Assessment and Plan: Blood pressure well controlled. Continue Lopressor and Benicar. Continue to monitor. (12) DVT prophylaxis: Code(s): Z29.9 - Encounter for prophylactic measures, unspecified Status: Acute Assessment and Plan: Juan Carlos Subjective Date/time seen: 04/04/20 10:46 Interval history: Patient seen and examined Patient feels better today Blood sugar improved this morning but blood sugar rebounded to around 400 around 10:00 a.m. Patient denies fever headache chest pain shortness of breath I am seeing the patient for DKA Exam Narrative: Exam Narrative: Alert Chest no wheeze crackles Abdomen nontender nondistended CVS S1 + S2 Lower extremity edema Objective Data Vital Signs Vital Signs: Vital Signs - 24 hr 04/03/20 12:00 04/03/20 14:00 04/03/20 16:00 Temperature 98.0 F 98.2 F Pulse Rate 92 88 84 Respiratory Rate 20 15 15 Blood Pressure 138/75 120/73 115/80 Pulse Oximetry 100 100 99 04/03/20 22:00 04/03/20 22:35 04/04/20 06:00 Temperature 97.3 F L 97.0 F L Pulse Rate 87 80 66 Respiratory Rate 21 H 20 Blood Pressure 109/56 L 123/77 Pulse Oximetry 100 98 Intake/Output Intake/Output: Intake & Output 04/01/20 04/02/20 04/03/20 04/04/20 23:59 23:59 23:59 23:59 Intake Total 1999 2440.6 700 Output Total 900 Balance 1999 1540.6 700 Meds/Results Medications: Active Medications Generic Name Dose Route Start Last Admin Trade Name Freq PRN Reason Stop Dose Admin Acetaminophen 650 mg 04/03/20 05:47 04/03/20 06:18 Acetaminophen 325 Mg Tablet
[2020-04-04] MEDS: INSULIN ASPART (*BKC) 100 UNITS/ML 6 UNITS SUB-Q ×2 (11:08→18:20)
[2020-04-04 12:10] LABS: Glucose Point of Care 423 (65-105)
[2020-04-04] MEDS: INSULIN ASPART (*BKC) 100 UNITS/ML 22 UNITS SUB-Q (12:50)
--- NOTE | 2020-04-04 13:33 | PC.NURSE ---
On 04/04/20, the student, [Pattie Abrams ], provided care and completed [facility] documentation on this patient. I have reviewed the student's documentation and agree with the findings.
[2020-04-04 15:01] VITALS: BP 109/71; PULSE 92; RESP 16; TEMP 36.8; O2SAT 100
[2020-04-04 17:02] LABS: Glucose Point of Care 63 (65-105)
[2020-04-04] MEDS: GLUCOSE ORAL GEL 15 GM OF GLUCSE IN 37.5 GM TUBE PO (17:04)
[2020-04-04 18:26] LABS: Glucose Point of Care 290 (65-105)
[2020-04-04 19:57] LABS: Glucose Point of Care 187 (65-105)
[2020-04-04] MEDS: INSULIN GLARGINE (*BKC) 100 UNITS/ML 20 UNITS SUB-Q (20:28)
[2020-04-04] MEDS: INSULIN ASPART (*BKC) 100 UNITS/ML 8 UNITS SUB-Q (21:03)
[2020-04-04 21:06] LABS: Glucose Point of Care 409 (65-105)
[2020-04-04 21:26] VITALS: PULSE 92; RESP 16; O2SAT 100
[2020-04-04 21:58] VITALS: BP 109/56; PULSE 86; RESP 18; TEMP 36.2; O2SAT 100
[2020-04-04] MEDS: DULoxetine HCL 60 MG CAPSULE.DR PO (22:35)
[2020-04-04] MEDS: ROSUVASTATIN 10 MG TABLET PO (22:35)
[2020-04-04] MEDS: ASPIRIN 81 MG ENTERIC TABLET PO (22:35)
[2020-04-04 22:36] VITALS: PULSE 74
[2020-04-04] MEDS: METOPROLOL TARTRATE 25 MG TABLET PO (22:36)
[2020-04-04 23:58] LABS: Glucose Point of Care 237 (65-105)
[2020-04-05] VITALS: BP 102/65; PULSE 56; RESP 20; TEMP 37.2; O2SAT 97
[2020-04-05 05:02] VITALS: BP 92/58; PULSE 76; RESP 20; TEMP 36.4; O2SAT 99
[2020-04-05 05:59] LABS: Alanine Aminotransferase 16 U/L (4-35); Albumin Level 2.8 g/dL (3.5-5.1); Alkaline Phosphatase 43 U/L (38-126); Anion Gap 1 mmol/L (8-16); Aspartate Amino Transferase 22 U/L (14-36); Bilirubin,Total 0.3 mg/dL (0.2-1.3); Blood Urea Nitrogen 18 mg/dL (7-17); Calcium 8.7 mg/dL (8.4-10.2); Carbon Dioxide 27 mmol/L (22-30); Chloride 110 mmol/L (98-107); Estimated CRCL calculation 31 ml/min; Estimated Glomerular Filt Rate 35; Glucose 126 mg/dL (65-105); Magnesium 1.9 mg/dL (1.6-2.3); Phosphorus 2.8 mg/dL (2.5-4.5); Potassium 4.5 mmol/L (3.4-5.0); Sodium 138 mmol/L (137-145)
[2020-04-05 06:08] LABS: Hematocrit 26.6 % (37.0-47.0); Hemoglobin 8.8 g/dL (12.0-15.0); Mean Corpuscular HGB Conc 33.1 g/dl (32-36); Mean Corpuscular Hemoglobin 29.5 pg (26-34); Mean Corpuscular Volume 89.3 fl (80-100); Mean Platelet Volume 10.8 fl (7.4-10.4); Platelet Count Result 126 k/mm3 (150-375); Red Blood Count 2.98 M/mm3 (4.2-5.4); Red Cell Distribution Width 12.5 % (11.5-14.5); White Blood Count 3.5 K/mm3 (4.5-10.0)
[2020-04-05 07:54] LABS: Glucose Point of Care 100 (65-105)
[2020-04-05] MEDS: INSULIN ASPART (*BKC) 100 UNITS/ML SUB-Q ×3 (08:46→17:10)
[2020-04-05] MEDS: ENOXAPARIN 30 MG/0.3 ML SYRINGE SUB-Q (08:46)
[2020-04-05] MEDS: FAMOTIDINE 20 MG TABLET PO ×2 (08:49→21:57)
[2020-04-05] MEDS: predniSONE 5 MG TABLET PO (10:34)
[2020-04-05] MEDS: OLMESARTAN MEDOXOMIL 10 MG TABLET PO ×2 (10:34→21:58)
[2020-04-05 11:46] LABS: Glucose Point of Care 284 (65-105)
[2020-04-05] MEDS: INSULIN ASPART (*BKC) 100 UNITS/ML 6 UNITS SUB-Q (11:54)
--- NOTE | 2020-04-05 13:31 | PM.IMPN ---
Progress Note: A&P Assessment and Plan (1) New onset type 2 diabetes mellitus: Code(s): E11.9 - Type 2 diabetes mellitus without complications Status: Acute Assessment and Plan: On presentation patient had DKA required DKA protocol currently insulin has been adjusted as blood sugar is uncontrolled. Medication was adjusted today expect patient will be ready for discharge in a.m. and a.m. (2) Acute hyperkalemia: Code(s): E87.5 - Hyperkalemia Status: Acute Assessment and Plan: Elevated 5.6. Short of breath iimproved (3) Acute renal failure (ARF): Code(s): N17.9 - Acute kidney failure, unspecified Status: Acute Assessment and Plan: Creatinine was 1.9 on admission. Related to dehydration improved . (4) Electrolyte abnormality: Code(s): E87.8 - Other disorders of electrolyte and fluid balance, not elsewhere classified Status: Acute Assessment and Plan: Hyperkalemia pseudohyponatremia secondary to DKA resolved (5) Dehydration: Code(s): E86.0 - Dehydration Status: Acute Assessment and Plan: Treated with IV fluids resolved. (6) Chronic renal failure: Code(s): N18.9 - Chronic kidney disease, unspecified Status: Inactive Assessment and Plan: Patient with a history of polycystic kidney disease status post bilateral nephrectomy with transplant. She has CKD with a creatinine baseline of 1.4. (7) Chronic anemia: Code(s): D64.9 - Anemia, unspecified Status: Inactive Assessment and Plan: Most likely anemia of chronic disease monitor (8) Kidney transplant recipient: Code(s): Z94.0 - Kidney transplant status Status: Acute Assessment and Plan: Patient is status post kidney transplant. Continue mycophenolate, tacrolimus and prednisone. (9) Immunocompromised patient: Code(s): D84.9 - Immunodeficiency, unspecified Status: Inactive Assessment and Plan: Urine culture growing EColi 100K. Allergic to Sulfa and Cephalosporins. QTc 410. Add renally dosed Levaquin. (10) Hypothyroidism: Code(s): E03.9 - Hypothyroidism, unspecified Status: Acute Assessment and Plan: TSH low at 0.24. FT4 normal at 1.1. Monitor repeat thyroid function test as outpatient probably sick steroid (11) Hypertension: Code(s): I10 - Essential (primary) hypertension Status: Acute Assessment and Plan: Blood pressure well controlled. Continue Lopressor and Benicar. Continue to monitor. (12) DVT prophylaxis: Code(s): Z29.9 - Encounter for prophylactic measures, unspecified Status: Acute Assessment and Plan: Lovenox Subjective Date/time seen: 04/05/20 13:31 Interval history: Patient seen and examined Patient feels better today Blood sugar improved this morning but blood sugar rebounded multiple time medication was adjusted today Patient denies fever headache chest pain shortness of breath I am seeing the patient for DKA Exam Narrative: Exam Narrative: Alert Chest no wheeze crackles Abdomen nontender nondistended CVS S1 + S2 Lower extremity edema Objective Data Vital Signs Vital Signs: Vital Signs - 24 hr 04/04/20 15:01 04/04/20 21:26 04/04/20 21:58 Temperature 98.3 F 97.1 F L Pulse Rate 92 92 86 Respiratory Rate 16 16 18 Blood Pressure 109/71 109/56 L Pulse Oximetry 100 100 100 04/04/20 22:36 04/05/20 00:00 04/05/20 05:02 Temperature 98.9 F 97.6 F Pulse Rate 74 56 L 76 Respiratory Rate 20 20 Blood Pressure 102/65 92/58 L Pulse Oximetry 97 99 Intake/Output Intake/Output: Intake & Output 04/02/20 04/03/20 04/04/20 04/05/20 23:59 23:59 23:59 23:59 Intake Total 1999 2440.6 1000 790 Output Total Balance 1999 1540.6 1000 790 Meds/Results Medications: Active Medications Generic Name Dose Route Start Last Admin Trade Name Frecarmela GALEANAN Reaso
[2020-04-05 14:00] VITALS: BP 137/63; PULSE 82; RESP 16; TEMP 37; O2SAT 99
[2020-04-05 16:25] LABS: Glucose Point of Care 263 (65-105)
[2020-04-05] MEDS: INSULIN ASPART (*BKC) 100 UNITS/ML 8 UNITS SUB-Q (17:10)
[2020-04-05 20:00] VITALS: BP 106/59; PULSE 79; RESP 20; TEMP 36.8; O2SAT 96
[2020-04-05] MEDS: ASPIRIN 81 MG ENTERIC TABLET PO (21:57)
[2020-04-05] MEDS: DULoxetine HCL 60 MG CAPSULE.DR PO (21:57)
[2020-04-05 21:58] VITALS: PULSE 79
[2020-04-05] MEDS: ROSUVASTATIN 10 MG TABLET PO (21:58)
[2020-04-05] MEDS: METOPROLOL TARTRATE 25 MG TABLET PO (21:58)
[2020-04-05] MEDS: INSULIN GLARGINE (*BKC) 100 UNITS/ML 17 UNITS SUB-Q (22:02)
[2020-04-05 22:09] LABS: Glucose Point of Care 216 (65-105)
[2020-04-06 04:00] VITALS: BP 102/57; PULSE 71; RESP 18; TEMP 36.4; O2SAT 100
[2020-04-06 05:56] LABS: Hematocrit 27.2 % (37.0-47.0); Hemoglobin 8.8 g/dL (12.0-15.0); Immature Platelet Fraction Pct 4.4 % (0.9-11.2); Mean Corpuscular HGB Conc 32.4 g/dl (32-36); Mean Corpuscular Hemoglobin 28.9 pg (26-34); Mean Corpuscular Volume 89.5 fl (80-100); Mean Platelet Volume 10.6 fl (7.4-10.4); Platelet Count Result 132 k/mm3 (150-375); Red Blood Count 3.04 M/mm3 (4.2-5.4); Red Cell Distribution Width 12.6 % (11.5-14.5); White Blood Count 2.8 K/mm3 (4.5-10.0)
[2020-04-06 06:05] LABS: Alanine Aminotransferase 24 U/L (4-35); Albumin Level 2.9 g/dL (3.5-5.1); Alkaline Phosphatase 45 U/L (38-126); Anion Gap 2 mmol/L (8-16); Aspartate Amino Transferase 37 U/L (14-36); Bilirubin,Total 0.3 mg/dL (0.2-1.3); Blood Urea Nitrogen 16 mg/dL (7-17); Calcium 8.8 mg/dL (8.4-10.2); Carbon Dioxide 27 mmol/L (22-30); Chloride 109 mmol/L (98-107); Estimated CRCL calculation 31 ml/min; Estimated Glomerular Filt Rate 35; Glucose 123 mg/dL (65-105); Magnesium 1.7 mg/dL (1.6-2.3); Phosphorus 3.1 mg/dL (2.5-4.5); Sodium 138 mmol/L (137-145)
[2020-04-06 07:17] LABS: Glucose Point of Care 106 (65-105)
[2020-04-06] MEDS: INSULIN ASPART (*BKC) 100 UNITS/ML 10 UNITS SUB-Q ×2 (08:06→12:12)
[2020-04-06] MEDS: ENOXAPARIN 30 MG/0.3 ML SYRINGE SUB-Q (08:09)
[2020-04-06 09:54] VITALS: O2SAT 97
[2020-04-06] MEDS: FAMOTIDINE 20 MG TABLET PO (10:47)
[2020-04-06] MEDS: predniSONE 5 MG TABLET PO (10:47)
[2020-04-06] MEDS: OLMESARTAN MEDOXOMIL 10 MG TABLET PO (10:47)
[2020-04-06 11:53] LABS: Glucose Point of Care 117 (65-105)
--- NOTE | 2020-04-06 13:20 | PM.DS ---
DS: Admitting Diagnosis Admitting Diagnosis Admitting Diagnosis: hyperglycemia DS: Discharge Diagnosis Discharge Diagnosis (1) New onset type 2 diabetes mellitus: Code(s): E11.9 - Type 2 diabetes mellitus without complications Status: Acute Assessment and Plan: On presentation patient had DKA required DKA protocol currently insulin has been adjusted as blood sugar is controlled. (2) Acute hyperkalemia: Code(s): E87.5 - Hyperkalemia Status: Acute Assessment and Plan: Elevated 5.6. resolved low potassium diet follow-up with PCP repeat CMP in 1 week (3) Acute renal failure (ARF): Code(s): N17.9 - Acute kidney failure, unspecified Status: Acute Assessment and Plan: Creatinine was 1.9 on admission. Related to dehydration improved follow-up with PCP repeat CMP in 1 week. (4) Electrolyte abnormality: Code(s): E87.8 - Other disorders of electrolyte and fluid balance, not elsewhere classified Status: Acute Assessment and Plan: Hyperkalemia pseudohyponatremia secondary to DKA resolved (5) Dehydration: Code(s): E86.0 - Dehydration Status: Acute Assessment and Plan: Treated with IV fluids resolved. (6) Chronic renal failure: Code(s): N18.9 - Chronic kidney disease, unspecified Status: Inactive Assessment and Plan: Patient with a history of polycystic kidney disease status post bilateral nephrectomy with transplant. She has CKD with a creatinine baseline of 1.4. (7) Chronic anemia: Code(s): D64.9 - Anemia, unspecified Status: Inactive Assessment and Plan: Most likely anemia of chronic disease monitor (8) Kidney transplant recipient: Code(s): Z94.0 - Kidney transplant status Status: Acute Assessment and Plan: Patient is status post kidney transplant. Continue mycophenolate, tacrolimus and prednisone. (9) Immunocompromised patient: Code(s): D84.9 - Immunodeficiency, unspecified Status: Inactive Assessment and Plan: Urine culture growing EColi 100K. Allergic to Sulfa and Cephalosporins. QTc 410. Add renally dosed Levaquin. (10) Hypothyroidism: Code(s): E03.9 - Hypothyroidism, unspecified Status: Acute Assessment and Plan: TSH low at 0.24. FT4 normal at 1.1. Monitor repeat thyroid function test as outpatient probably sick steroid (11) Hypertension: Code(s): I10 - Essential (primary) hypertension Status: Acute Assessment and Plan: Blood pressure well controlled. Continue Lopressor and Benicar. Continue to monitor. (12) DVT prophylaxis: Code(s): Z29.9 - Encounter for prophylactic measures, unspecified Status: Acute Assessment and Plan: Lovenox DS: Summary Hospital Course Hospital Course: Patient was admitted to the hospital was found to have DKA patient did not have history of diabetes was treated with DKA protocol condition has improved patient will be discharged on Lantus sliding scale insulin and meal insulin follow-up with PCP also patient has UTI treated with antibiotics Follow-up with transplant team as outpatient as patient started to on antibiotic and insulin Time Spent with Patient Time attestation: Total time spent providing and/or coordinating discharge services: Exam Narrative: Exam Narrative: Alert Chest no wheeze crackles Abdomen nontender nondistended CVS S1 + S2 Lower extremity edema DS: Data Data Completed and Pending Labs on day of discharge: Labs from last 24 hours 04/06/20 04/06/20 04/06/20 11:50 07:15 05:23 WBC RBC Hgb Hct MCV MCH MCHC RDW Plt Count MPV % Immature Plt Fraction Sodium 138 Potassium 4.0 Chloride 109 H Carbon Dioxide 27 Anion Gap 2 L BUN 16 Creatinine 1.50 H Estim Creat Clear Calc 31 Estimated GFR 35 L Glucose 123 H POC C
--- NOTE | 2020-04-06 14:17 | PC.NURSE ---
Dr. David requested staff to call in pens instead of vials. Spoke with pharmacy and called in script.
== END 2020-04-06 15:06 | disposition home or self-care (01) | DRG 638 ==
LOC: ANHED 18:59 → ANHICU 19:22 → ANH2MED 04-03 17:34
PROVIDERS: Emergency Medicine; Internal Medicine; Physician Assistant; Admitting Provider Internal Medicine; Emergency Provider General Practice; PCP Internal Medicine; Visit Provider Internal Medicine
DX: E11.10 Type 2 diabetes mellitus with ketoacidosis without coma (principal); D84.9 Immunodeficiency, unspecified; N17.9 Acute kidney failure, unspecified; I13.0 Hypertensive heart and chronic kidney disease with heart failure and stage 1 through stage 4 chronic kidney disease, or unspecified chronic kidney disease; Z94.0 Kidney transplant status; N39.0 Urinary tract infection, site not specified; B96.20 Unspecified Escherichia coli [E. coli] as the cause of diseases classified elsewhere; I50.9 Heart failure, unspecified; E11.22 Type 2 diabetes mellitus with diabetic chronic kidney disease; D63.1 Anemia in chronic kidney disease; E87.5 Hyperkalemia; E86.0 Dehydration; N18.9 Chronic kidney disease, unspecified; E03.9 Hypothyroidism, unspecified; K21.9 Gastro-esophageal reflux disease without esophagitis; E78.5 Hyperlipidemia, unspecified; Z87.891 Personal history of nicotine dependence; Z79.899 Other long term (current) drug therapy; Z88.1 Allergy status to other antibiotic agents; Z88.2 Allergy status to sulfonamides; Z85.828 Personal history of other malignant neoplasm of skin
CPT/HCPCS: 36415; 71045; 80048; 80053; 81001; 82010; 82803; 82948; 83036; 83735; 84100; 84439; 84443; 84480; 85025; 85027; 85055; 87077; 87086; 87088; 87186; 93005; 96361; 96365; 96366; 96367; 96368; 96375; 96376; 99285; A9270; G0378; J1650; J1815; J3475; J3480; J7030; J7512

== ENCOUNTER → 2020-08-04 02:55 | Outpatient (CLI) | payer BC, SELFPAY ==
[2020-08-04 19:50] LABS: SARS-CoV-2 RNA PCR Negative
== END ==
PROVIDERS: PCP Internal Medicine; Visit Provider Internal Medicine Gastroenterology
DX: Z01.812 Encounter for preprocedural laboratory examination (principal); Z20.822 Contact with and (suspected) exposure to COVID-19
CPT/HCPCS: C9803; U0003; U0005

== ENCOUNTER 2020-08-07 00:21 | Day surgery (SDC) | payer BC, SELFPAY ==
[2020-07-27 11:23] VITALS: BMI 28.4
[2020-08-07 07:33] VITALS: BP 127/70; PULSE 62; RESP 18; TEMP 36.1; O2SAT 98; BMI 26.9
[2020-08-07 07:49] LABS: Glucose Point of Care 157 mg/dl (65-105)
[2020-08-07] MEDS: LACTATED RINGERS 1,000 ML 150 ML IV CONT (07:49)
--- NOTE | 2020-08-07 07:51 | WPDANESEPPF ---
Anes - Initial Pre Proc Eval Procedure: Operation Date: 08/07/20 08:30 Proposed Procedures p Screening Colonoscopy - Barry Dean MD Date/Time: 08/07/20 07:51 Surgeon: Barry Dean MD Pre Op Diagnosis: hx colon polyps, neoplasm screening Patient Data Age: 59 Gender: F Height: 1.55 m Weight: 64.7 kg Last Vital Signs Temp 36.1 C L 08/07/20 07:33 Pulse 62 08/07/20 07:33 Resp 18 08/07/20 07:33 BP 127/70 08/07/20 07:33 Pulse Ox 98 08/07/20 07:33 Allergies Allergy/AdvReac Type Severity Reaction Status Date / Time Sulfa (Sulfonamide Allergy Mild Hives Verified 08/07/20 07:32 Antibiotics) Cephalosporins Allergy Unknown Hives Verified 08/07/20 07:32 Home Medications Medication Instructions Recorded Confirmed Type albuterol sulfate 2 puff INHALATION QID PRN 04/02/20 08/07/20 History duloxetine 60 mg PO DAILY 04/02/20 08/07/20 History famotidine 20 mg PO BID 04/02/20 08/07/20 History metoprolol tartrate 25 mg PO DAILY 04/02/20 08/07/20 History mycophenolate sodium 360 mg PO BID 04/02/20 08/07/20 History olmesartan 10 mg PO DAILY 04/02/20 08/07/20 History prednisone 5 mg PO DAILY 04/02/20 08/07/20 History rosuvastatin 10 mg PO DAILY 04/02/20 08/07/20 History tacrolimus 2 mg PO BID 04/02/20 08/07/20 History aspirin 81 mg PO DAILY 04/03/20 08/07/20 History syringe (disposable) #100 ea 04/06/20 08/07/20 Rx insulin glargine [Basaglar KwikPen 5 unit SUBCUT DAILY 07/27/20 08/07/20 History U-100 Insulin] Laboratory Tests 08/07/20 07:47 POC Capillary Glucose 157 mg/dl H mg/dl (65-105) Patient hx anesthesia problems: none Family hx anesthesia problems: none PMFSH Past Medical History Medical History Chronic anemia Chronic renal failure History of hemodialysis prior to renal transplant. Baseline creatinine is around 1.40. Congestive heart failure Gastroesophageal reflux disease Hyperlipidemia Hypertension Immunocompromised patient On immunosuppressive therapy status post renal transplant. Polycystic kidney disease Status post bilateral nephrectomy. Skin cancer History of both basal cell and squamous cell carcinoma. Type 2 diabetes mellitus (~04/02/20) Surgical History Surgical History History of Achilles tendon repair History of section (~1981) History of endometrial ablation (~2008) Kidney transplant recipient (~04/2009) Status post creation of arteriovenous fistula Status post surgical removal of malignant neoplasm of skin Family History Family History Mother Breast cancer Hypertension Lupus (systemic lupus erythematosus) Father Polycystic kidney disease Mother Diabetes mellitus Grandparent Malignant neoplasm of prostate Sibling Ulcerative colitis Other Carcinoma of colon Lung cancer Social History Social History Social History: Surrogate decision maker: Louis Alvarez, spouse. Code status: Full code. Smoking packs per day: 1.5 Smoking cigarettes per day: 30.0 Years smoked: 30 Smoking pack-years: 45.00 Smoking status: Former smoker Tobacco type: cigarettes Second hand tobacco smoke exposure: Yes Alcohol intake: current Drinks per week: 1 Substance use: never Substance use type: does not use Living arrangements: with family Additional living arrangements comments: Resides in [place] with her . 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 Gender identity (if verbalized by the patient): Female Spiritual care concerns: No Anes - Eval Final PreProcedure Day of Procedure 08/07/20 07:51 Patient weight: overweight Heart: regular rate and rhythm Lungs: clear to auscultation and normal air movement Airway: Mallampati scale class II Asif
--- NOTE | 2020-08-07 07:56 | PM.HPGS ---
History of Present Illness History of Present Illness Consent: Risks, benefits, and alternatives have been discussed and questions answered. Patient agrees to proceed with procedure. Chief complaint: hx colon polyps, neoplasm screening Narrative: Anna Brandt is a 59 year old female here for colon cancer screening. She had had a polyp removed 11 years ago Review of Systems Review of Systems: All systems reviewed & are unremarkable except as noted in HPI and below PMFSH Past Medical History Medical History Chronic anemia Chronic renal failure History of hemodialysis prior to renal transplant. Baseline creatinine is around 1.40. Congestive heart failure Gastroesophageal reflux disease Hyperlipidemia Hypertension Immunocompromised patient On immunosuppressive therapy status post renal transplant. Polycystic kidney disease Status post bilateral nephrectomy. Skin cancer History of both basal cell and squamous cell carcinoma. Type 2 diabetes mellitus (~04/02/20) Surgical History Surgical History History of Achilles tendon repair History of section (~1981) History of endometrial ablation (~2008) Kidney transplant recipient (~04/2009) Status post creation of arteriovenous fistula Status post surgical removal of malignant neoplasm of skin Family History Family History Mother Breast cancer Hypertension Lupus (systemic lupus erythematosus) Father Polycystic kidney disease Mother Diabetes mellitus Grandparent Malignant neoplasm of prostate Sibling Ulcerative colitis Other Carcinoma of colon Lung cancer Social History Social History Social History: Surrogate decision maker: Louis Alvarez, spouse. Code status: Full code. Smoking packs per day: 1.5 Smoking cigarettes per day: 30.0 Years smoked: 30 Smoking pack-years: 45.00 Smoking status: Former smoker Tobacco type: cigarettes Second hand tobacco smoke exposure: Yes Alcohol intake: current Drinks per week: 1 Substance use: never Substance use type: does not use Living arrangements: with family Additional living arrangements comments: Resides in [place] with her . 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 Gender identity (if verbalized by the patient): Female Spiritual care concerns: No Meds Home Medications and Allergies Home Medications Medication Instructions Recorded Confirmed Type albuterol sulfate 2 puff INHALATION QID PRN 04/02/20 08/07/20 History duloxetine 60 mg PO DAILY 04/02/20 08/07/20 History famotidine 20 mg PO BID 04/02/20 08/07/20 History metoprolol tartrate 25 mg PO DAILY 04/02/20 08/07/20 History mycophenolate sodium 360 mg PO BID 04/02/20 08/07/20 History olmesartan 10 mg PO DAILY 04/02/20 08/07/20 History prednisone 5 mg PO DAILY 04/02/20 08/07/20 History rosuvastatin 10 mg PO DAILY 04/02/20 08/07/20 History tacrolimus 2 mg PO BID 04/02/20 08/07/20 History aspirin 81 mg PO DAILY 04/03/20 08/07/20 History syringe (disposable) #100 ea 04/06/20 08/07/20 Rx insulin glargine [Basaglar KwikPen 5 unit SUBCUT DAILY 07/27/20 08/07/20 History U-100 Insulin] Allergies Allergy/AdvReac Type Severity Reaction Status Date / Time Sulfa (Sulfonamide Allergy Mild Hives Verified 08/07/20 07:32 Antibiotics) Cephalosporins Allergy Unknown Hives Verified 08/07/20 07:32 Vital Signs Vital Signs - 24 hr 08/07/20 07:33 Temperature 36.1 C L Pulse Rate 62 Respiratory Rate 18 Blood Pressure 127/70 Pulse Oximetry 98 Exam Resp: Auscultation: clear to auscultation bilaterally Cardio: Rate: regular rate Rhythm: regular rhythm GI: GI Palp: Yes Soft to palpation and No Tenderness to palpation present (GI) Assessment and
[2020-08-07 08:45] VITALS: BP 90/59; PULSE 67; RESP 19; O2SAT 96
[2020-08-07 08:55] VITALS: BP 98/58; PULSE 71; RESP 18; O2SAT 98
[2020-08-07 09:04] VITALS: BP 105/56; PULSE 67; RESP 15; O2SAT 100
== END 2020-08-07 09:13 | disposition home or self-care (01) ==
PROVIDERS: PCP Internal Medicine; Visit Provider Internal Medicine Gastroenterology
PROC: 0DJD8ZZ Inspection of Lower Intestinal Tract, Via Natural or Artificial Opening Endoscopic (ICD-10-PCS; CPT 45378; principal; 2020-08-07 08:30)
DX: Z12.11 Encounter for screening for malignant neoplasm of colon (principal); Z86.010 Personal history of colon polyps; I50.9 Heart failure, unspecified; E78.5 Hyperlipidemia, unspecified; Z79.82 Long term (current) use of aspirin; Z79.4 Long term (current) use of insulin; I13.0 Hypertensive heart and chronic kidney disease with heart failure and stage 1 through stage 4 chronic kidney disease, or unspecified chronic kidney disease; Z79.51 Long term (current) use of inhaled steroids; D63.1 Anemia in chronic kidney disease; E11.22 Type 2 diabetes mellitus with diabetic chronic kidney disease; N18.9 Chronic kidney disease, unspecified; K21.9 Gastro-esophageal reflux disease without esophagitis; Q61.3 Polycystic kidney, unspecified; Z90.5 Acquired absence of kidney; Z85.828 Personal history of other malignant neoplasm of skin; Z87.891 Personal history of nicotine dependence
CPT/HCPCS: 45378; 82948; C9803; J2704; J7120; U0003; U0005

== ENCOUNTER 2021-07-23 14:14 | Emergency (ER) | payer BC, SELFPAY ==
--- NOTE | ~2021-07-23 | CT_ITS ---
EXAMINATION: CT abdomen pelvis wo con DATE: 07/23/2021 15:21 INDICATION: Abdomen pain. History of liver cysts. TECHNIQUE: Computed tomography (CT) of the abdomen and pelvis was performed without intravenous contr ast. The dose-length product was 349.64 mGy-cm. Automated exposure control and iterative reconstructi on technique were employed. COMPARISON: None. FINDINGS: There is right lower lobe airspace disease which may represent atelectasis or pneumonia. He art size normal. No significant pleural or pericardial effusion. There is a large complex mass which appears to be exophytic from the left hepatic lobe measuring 9.1 cm transverse x8.6 cm AP x12.2 cm cr aniocaudal. This mass abuts the fundus of the stomach as well. There is ascites. Nonobstructive bowel gas pattern. The spleen, pancreas, adrenal glands are unremarkable. The left kidney is not identifie d. 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 There is atherosclerosis of the aort a and coronary arteries. Innumerable liver cyst are present. There are gallstones. There are surgical changes consistent with previous ventral hernia repair. There is a small upper abdominal ventral her brendan containing fat. IMPRESSION: 1. Complex heterogeneous mass centered in the left upper abdomen, most likely exophytic from the live r and less likely the stomach. This mass is concerning for malignancy. Differential diagnosis include s hemorrhagic mass or infection. Recommend correlation with MRI of the abdomen with and without contr ast. 2: Right lower lobe airspace disease which may represent atelectasis or pneumonia. 3: Small amount of ascites. 4: Cholelithiasis. 5: Multiple liver cysts. Reviewed, dictated and finalized at location A. IMPRESSION: 1. Complex heterogeneous mass centered in the left upper abdomen, most likely e xophytic from the liver and less likely the stomach. This mass is concerning fo r malignancy. Differential diagnosis includes hemorrhagic mass or infection. Re commend correlation with MRI of the abdomen with and without contrast. 2: Right lower lobe airspace disease which may represent atelectasis or pneumon ia. 3: Small amount of ascites. 4: Cholelithiasis. 5: Multiple liver cysts.
[2021-07-23 14:16] VITALS: BP 135/104; PULSE 89; RESP 16; TEMP 36.1; O2SAT 95
[2021-07-23 14:24] VITALS: BP 126/95; PULSE 74; RESP 17; O2SAT 99
[2021-07-23 15:02] LABS: Basophils Percent Auto 0.4 % (0.2-1.2); Eosinophils Percent Auto 0.4 % (0-4.4); Hematocrit 33.7 % (37.0-47.0); Hemoglobin 10.9 g/dL (12.0-15.0); Immature Granulocyte Absolute 0.03 K/mm3 (0.00-0.031); Immature Granulocyte Percent A 0.3 % (0-0.5); Lymphocytes Absolute Auto 0.97 K/mm3 (0.9-3.2); Lymphocytes Percent Auto 9.7 % (18.3-44.2); Mean Corpuscular HGB Conc 32.3 g/dl (32-36); Mean Corpuscular Hemoglobin 29.5 pg (26-34); Mean Corpuscular Volume 91.3 fl (80-100); Mean Platelet Volume 10.2 fl (7.4-10.4); Monocytes Absolute Auto 0.5 K/mm3 (0.1-0.6); Monocytes Percent Auto 5.1 % (2.6-8.5); Neutrophils Absolute Auto 8.4 K/mm3 (1.3-6.7); Neutrophils Percent Auto 84.1 % (45.5-73.1); Platelet Count Result 192 k/mm3 (150-375); Red Blood Count 3.69 M/mm3 (4.2-5.4); Red Cell Distribution Width 12.8 % (11.5-14.5)
[2021-07-23 15:14] LABS: Alanine Aminotransferase 18 U/L (6-35); Albumin Level 4.3 g/dL (3.5-5.1); Alkaline Phosphatase 63 U/L (38-126); Anion Gap 8 mmol/L (8-16); Aspartate Amino Transferase 31 U/L (14-36); Bilirubin,Total 0.8 mg/dL (0.2-1.3); Blood Urea Nitrogen 40 mg/dL (7-17); Calcium 9.7 mg/dL (8.4-10.2); Carbon Dioxide 25 mmol/L (22-30); Chloride 106 mmol/L (98-107); Estimated CRCL calculation 29 ml/min; Estimated Glomerular Filt Rate 38; Glucose 223 mg/dL (65-110); Lipase 161 U/L (23-300); Potassium 4.4 mmol/L (3.4-5.0); Sodium 139 mmol/L (137-145)
--- NOTE | 2021-07-23 15:15 | PC.NURSE ---
Pt taken to CT
[2021-07-23] MEDS: MORPHINE SULFATE (*CRX) 4 MG/ML INJ IV PUSH (15:35)
[2021-07-23] MEDS: ONDANSETRON INJ 4 MG/2 ML VIAL IV PUSH (15:36)
[2021-07-23 15:45] VITALS: BP 124/82; PULSE 78; RESP 24; O2SAT 94
--- NOTE | 2021-07-23 16:04 | ED.ABDPAIN ---
HPI - Abdominal Pain General Chief Complaint: Abdominal Pain Stated Complaint: vomiting Time Seen by Provider: 07/23/21 14:46 History of Present Illness HPI narrative: 60-year-old female with history of liver cyst last drained 1 month ago at [place] states that she has been having several days of pain and distention in her left abdomen that is nonradiating similar to when she had her prior cyst, with some nausea. She states she was has a chronic cough, no fevers or chills, no diarrhea, no dysuria. Related Data Home Medications Medication Instructions Recorded Confirmed albuterol sulfate 90 mcg/actuation 2 puff inhalation QID PRN 04/02/20 08/07/20 aerosol inhaler Shortness Of Breath Or Wheezing duloxetine 60 mg capsule,delayed 60 mg PO DAILY 04/02/20 08/07/20 release famotidine 20 mg tablet 20 mg PO BID 04/02/20 08/07/20 metoprolol tartrate 25 mg tablet 25 mg PO DAILY 04/02/20 08/07/20 mycophenolate sodium 360 mg 360 mg PO BID 04/02/20 08/07/20 tablet,delayed release olmesartan 5 mg tablet 10 mg PO DAILY 04/02/20 08/07/20 prednisone 5 mg tablet 5 mg PO DAILY 04/02/20 08/07/20 rosuvastatin 10 mg tablet 10 mg PO DAILY 04/02/20 08/07/20 tacrolimus 1 mg capsule, 2 mg PO BID 04/02/20 08/07/20 immediate-release aspirin 81 mg tablet 81 mg PO DAILY 04/03/20 08/07/20 insulin glargine 100 unit/mL (3 5 unit subcut DAILY 07/27/20 08/07/20 mL) subcutaneous pen (Basaglar KwikPen U-100 Insulin) Allergies Allergy/AdvReac Type Severity Reaction Status Date / Time Sulfa (Sulfonamide Allergy Mild Hives Verified 07/23/21 14:34 Antibiotics) Cephalosporins Allergy Unknown Hives Verified 07/23/21 14:34 Review of Systems Review of Systems: CONST: No fever. HEENT: No sore throat C/V: No chest pain RESP: cough GI: Reports abdominal pain, nausea : No dysuria. M/S: Some left shoulder discomfort SKIN: No rash. NEURO: [No headache or focal numbness or weakness] PSYCH: [No depression] PMFSH Past Medical History Medical History Chronic anemia Chronic renal failure History of hemodialysis prior to renal transplant. Baseline creatinine is around 1.40. Congestive heart failure Gastroesophageal reflux disease Hyperlipidemia Hypertension Immunocompromised patient On immunosuppressive therapy status post renal transplant. Polycystic kidney disease Status post bilateral nephrectomy. Skin cancer History of both basal cell and squamous cell carcinoma. Type 2 diabetes mellitus (~04/02/20) Surgical History Surgical History History of Achilles tendon repair History of section (~1981) History of endometrial ablation (~2008) Kidney transplant recipient (~04/2009) Status post creation of arteriovenous fistula Status post surgical removal of malignant neoplasm of skin Family History Family History Mother Breast cancer Hypertension Lupus (systemic lupus erythematosus) Father Polycystic kidney disease Mother Diabetes mellitus Grandparent Malignant neoplasm of prostate Sibling Ulcerative colitis Other Carcinoma of colon Lung cancer Social History Social History Social History: Surrogate decision maker: Louis Alvarez, spouse. Code status: Full code. Smoking packs per day: 1.5 Smoking cigarettes per day: 30.0 Years smoked: 30 Smoking pack-years: 45.00 Smoking status: Former smoker Tobacco type: cigarettes Second hand tobacco smoke exposure: Yes Alcohol intake: current Drinks per week: 1 Substance use: never Substance use type: does not use Additional living arrangements comments: Resides in [place] with her . 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 Gender identity (if verbalized by the patient): Female Spiritual care concerns: No
[2021-07-23 16:30] VITALS: BP 134/85; PULSE 86; RESP 18; O2SAT 97
[2021-07-23] MEDS: HYDROmorphone HCL INJ (*CRX) 1 MG/ML SYR IV PUSH (16:38)
[2021-07-23 17:03] VITALS: BP 142/68; PULSE 86; RESP 18; O2SAT 99
[2021-07-23 17:27] LABS: SARS-CoV-2 RNA PCR Negative
== END 2021-07-23 17:05 | disposition home or self-care (01) ==
PROVIDERS: Emergency Provider Emergency Medicine; PCP Internal Medicine
DX: K76.89 Other specified diseases of liver (principal); Z20.822 Contact with and (suspected) exposure to COVID-19; I13.0 Hypertensive heart and chronic kidney disease with heart failure and stage 1 through stage 4 chronic kidney disease, or unspecified chronic kidney disease; E11.22 Type 2 diabetes mellitus with diabetic chronic kidney disease; N18.9 Chronic kidney disease, unspecified; I50.9 Heart failure, unspecified; Z94.0 Kidney transplant status; D64.9 Anemia, unspecified; E78.5 Hyperlipidemia, unspecified; D84.9 Immunodeficiency, unspecified; Z90.5 Acquired absence of kidney; Z85.828 Personal history of other malignant neoplasm of skin; Z87.891 Personal history of nicotine dependence; Z79.4 Long term (current) use of insulin; Z79.82 Long term (current) use of aspirin; R91.8 Other nonspecific abnormal finding of lung field; K80.20 Calculus of gallbladder without cholecystitis without obstruction
CPT/HCPCS: 36415; 74176; 80053; 83690; 85025; 96374; 96375; 99284; C9803; J1170; J2270; J2405; U0003; U0005

== ENCOUNTER → 2022-02-19 12:19 | Outpatient (CLI) | payer BC, SELFPAY ==
--- NOTE | ~2022-02-19 | DEXA_ITS ---
Bone Density Report Name: LUIS ENRIQUE SHERMAN Age: 61 Sex: Female Ethnicity: White Date of : 1960 Indication: postmenopausal; screening for osteoporosis; height loss; history of glucocorticoids; prior fracture; asthma or emphysema; end stage renal disease; Referring Provider: MEGAN*, [place] Muro Study: Bone densitometry was performed. Exam Date: February 19, 2022 Accession number: [id number] Bone Density: Region BMD T-score Z-score Classification AP Spine (L1-L4) 0.821 -2.1 -0.5 Osteopenia Femoral Neck (Left) 0.702 -1.3 0.1 Osteopenia Total Hip (Left) 0.839 -0.8 0.2 Normal Femoral Neck (Right) 0.801 -0.4 0.9 Normal Total Hip (Right) 0.810 -1.1 0.0 Osteopenia Total Hip Mean 0.825 -1.0 0.1 Normal World Health Organization criteria for BMD impression classify patients as: Normal (T-score at or above -1.0), Osteopenia (T-score between -1.0 and -2.5), or Osteoporosis (T-score at or below -2.5). 10-year Fracture Risk(1): Major Osteoporotic Fracture 21% Hip Fracture 2.1% Reported Risk Factors: [place] (), Neck BMD=0.702, BMI=24.5, previous fracture, glucocorticoids (1) FRAX(R) Version 3.08. Fracture probability calculated for an untreated patient. Fracture probability may be lower if the patient has received treatment. Previous Exams: Region Exam Age BMD T-score BMD Change BMD Change Date g/cm2 vs Baseline vs Previous AP Spine(L1-L4) 02/19/2022 61 0.821 -2.1 -0.128* -0.128* 11/22/2019 59 0.949 -0.9 Total Hip(Left) 02/19/2022 61 0.839 -0.8 -0.019 -0.019 11/22/2019 59 0.857 -0.7 Total Hip(Right) 02/19/2022 61 0.810 -1.1 -0.013 -0.013 11/22/2019 59 0.822 -1.0 *Denotes significance at 95% confidence level, LSC for AP Spine = 0.022 g/cm2, LSC for Total Hip = 0.027 g/cm2 Clinical Information Provided by Patient: Has had a low trauma fracture Has taken Glucocorticoids Has the following medical conditions: Asthma or Emphysema, End stage renal disease Patient maximum height was 61.5 Menopause Age: 47 No regular weight bearing exercise Drinks caffeinated beverages Onset of menses at age 10 Number of children 1 Impression: The patient has low bone mass, based on the Total Spine T-score. The patient has an estimated ten-year risk of hip fracture of 2.1% and an estimated ten-year risk of major fracture of 21%, based on the WHO FRAX algorithm. The patient willett
--- NOTE | ~2022-02-19 | MM_ITS ---
EXAMINATION: MM screening ana BI w kamla HISTORY: Screening mammogram TECHNIQUE: Craniocaudal and mediolateral oblique 3-D tomosynthesis images were obtained and synthetic 2-D images were generated. CAD analysis was submitted and interpreted. COMPARISON: No prior mammogram is available for comparison at this institution. BREAST PARENCHYMAL COMPOSITION: There are scattered areas of fibroglandular density. FINDINGS: There is no evidence of suspicious mass, calcification, or architectural distortion to sugg est malignancy in either breast. There has been no suspicious interval change. IMPRESSION: 1. No mammographic evidence of malignancy. 2. Recommend routine screening mammography in one year. BI-RADS Category 1: Negative Reviewed, dictated and finalized at location A. 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
== END ==
PROVIDERS: PCP Internal Medicine; Visit Provider Internal Medicine
DX: Z12.31 Encounter for screening mammogram for malignant neoplasm of breast (principal); M81.0 Age-related osteoporosis without current pathological fracture; M85.88 Other specified disorders of bone density and structure, other site; M85.852 Other specified disorders of bone density and structure, left thigh; M85.851 Other specified disorders of bone density and structure, right thigh
CPT/HCPCS: 77063; 77067; 77080